=== PATIENT | female | born 1985 | race Two or more races ===

== ENCOUNTER 2018-05-30 10:27 | Outpatient (CLI) | payer OTHER | END 2018-05-30 10:28 | disposition home or self-care (01) | LOC: RAD 501 10:27 | DX: J44.1 Chronic obstructive pulmonary disease with (acute) exacerbation (principal); J01.91 Acute recurrent sinusitis, unspecified ==

== ENCOUNTER 2022-04-05 08:54 | Outpatient (CLI) | payer OTHER | END 2022-04-05 08:57 | disposition home or self-care (01) | LOC: SONOGRAMA 08:54 | PROVIDERS: ATTEND Pathology Anatomic Pathology & Clinical Pathology | DX: E04.1 Nontoxic single thyroid nodule (principal) ==